=== PATIENT | female | born 1980 | race Caucasian/White ===

== ENCOUNTER 2016-07-23 16:35 | Emergency (ER) | payer OTHER ==
[~2016-07-23] VITALS: Ht 160 cm; Wt 89.0 kg
[~2016-07-23 16:35] MED LIST: CYCL-319 PO; IBUP800T25 PO; SAME; SUMA50TA11; TRAM50TA2 PO; denies meds/allergies
[2016-07-23 16:43] VITALS: Ht 160 cm; Wt 89.0 kg
[2016-07-23] MEDS ORDERED: DIPHTH/TET/ACEL PERTUSS (ADULT) 0.5 ML VIAL IM* ONE (17:00)
[2016-07-23] MEDS ORDERED: AMOX1TAB10 PO (17:03)
--- NOTE | 2016-07-23 17:08 | ERD ---
ER Documentation Chief Complaint Date/Time DATE: 07/23/16 TIME: 17:07 Chief Complaint right wrist dog bite today HPI A 35-year-old female with no past medical history who presents to the ED with a dog bite to her right wrist. She states that both of her dogs were fighting and she tried to stop 1 of the dogs from fighting and the dog bit her on the wrist. Denies bleeding. Denies fever or chills. Denies dizziness. Denies abdominal pain, nausea, vomiting or diarrhea. No other complaints. Patient is not up-to-date with her tetanus vaccine. ROS All systems reviewed and are negative except as per history of present illness. Medications Home Meds Active Scripts Amoxicillin/Potassium Clav (Amox-Clav 875-125 mg Tablet) 875-125 mg Tab, 1 TAB PO BID for 7 Days, #14 TAB Prov:CORY CISNEROS PA-C 07/23/16 Tramadol HCl (Tramadol HCl) 50 Mg Tablet, 50 MG PO Q6 Y for SEVERE PAIN LEVEL 7- 10, #10 TAB Prov:LAKE HENDERSON. [employer]UD[employer] PROFESSOR 09/25/15 Cyclobenzaprine Hcl* (Cyclobenzaprine Hcl*) 10 Mg Tablet, 10 MG PO TID, #15 TAB Prov:LAKE HENDERSON. [employer]DI[employer] STUDIES PROFESSOR 09/25/15 Ibuprofen* (Motrin*) 800 Mg Tab, 800 MG PO Q8 Y for PAIN AND OR ELEVATED TEMP, # 30 TAB Prov:LAKE HENDERSON. AMER[employer]DI[employer] STUDIES PROFESSOR 09/25/15 Reported Medications [denies meds/allergies] No Conflict Check 12/04/12 [Same] No Conflict Check 11/22/11 Sumatriptan Succinate* (Imitrex*) 50 Mg Tablet 07/28/11 Allergies Allergies: Coded Allergies: No Known Drug Allergy (Verified Allergy, Unknown, 09/25/15) PMhx/Soc History of Surgery: No Anesthesia Reaction: No Hx Neurological Disorder: No Hx Respiratory Disorders: No Hx Cardiac Disorders: No Hx Psychiatric Problems: No Hx Miscellaneous Medical Probl: No Hx Alcohol Use: No Hx Substance Use: No Hx Tobacco Use: No Smoking Status: Never smoker FmHx Family History: No coronary disease, No diabetes, No other Physical Exam Vitals Vital Signs Date Time Temp Pulse Resp B/P Pulse Ox O2 Delivery O2 Flow Rate FiO2 07/23/16 16:43 98.2 112 18 140/65 99 Physical Exam GENERAL: Well-developed, well-nourished female. Appears in no acute distress. HEAD: Normocephalic, atraumatic. EYES: Pupils are equally reactive bilaterally. EOMs grossly intact. No conjunctival erythema. ENT: Moist mucous membranes. No uvula deviation. No kissing tonsils. No exudates. NECK: Supple. No lymphadenopathy or thyromegaly. No meningismus. negative kernig. negative brudinski. LUNG: Clear to auscultation bilaterally. No rhonchi, wheezing, rales or coarse breath sounds. HEART: Regular rate and rhythm. No murmurs, rubs or gallops. BACK: No midline tenderness. Extremities: Equal pulses bilaterally. No peripheral clubbing, cyanosis or edema. No unilateral leg swelling. Bite to the right wrist. No step-offs or deformities. NEUROLOGIC: Alert and oriented. Moving all four extremities. 5/5 strength in all extremities. Normal speech. Steady gait. SKIN: Normal color. Warm and dry. No rashes or lesions. Capillary refill < 2 seconds Results 24 hrs Current Medications Medications (Trade) Dose Ordered Sig/Vianey Route PRN Reason Start Time Stop Time Status Last Admin Dose Admin Diphtheria/ Tetanus/Acell Pertussis (Adacel) 0.5 ml ONCE ONCE IM* 07/23/16 17:00 07/23/16 17:02 DC Procedures/MDM ER COURSE: I kept the patient and/or family informed of laboratory and diagnostic imaging results throughout the emergency room course. MEDICAL DECISION MAKING: This is a 35-year-old female who presents with dog bite 1 day. Vital signs were reviewed. Patient is afebrile. Patient is not hypoxic. Patient is not toxic or ill-appearing. Patient was given a tetanus vaccine here in the ED and tolerated well with no adverse reaction. Low suspicion for necrotizing fasciitis, SJS, toxic epidermal necrolysis, Kawasaki, erythema multiforme, gangrene, scarlet fever, meningococcemia, sepsis, anaphylaxis, sepsis, deep space infection, or foreign body. DISCHARGE: At this time, patient is stable for discharge and outpatient management with no new complaints during the ER course. Patient was sent home with Augmentin. Patient will be discharged home with instructions to recheck for new or worsening symptoms such as fever, nausea, weakness, LOC and to follow up with primary care in the next 1-2 days. Patient was advised to return to the ER for any new or worsening symptoms. Plan was discussed and patient and/or family understands and agrees. Home instructions were given. Departure Diagnosis: Primary Impression: Dog bite Encounter type: initial encounter Qualified Code: W54.0XXA - Dog bite, initial encounter Condition: Stable Patient Instructions: Dog Bite Additional Instructions: Call your primary care doctor TOMORROW for an appointment during the next 1-2 days.See the doctor sooner or return here if your condition worsens before your appointment time. CORY CISNEROS PA-C Jul 23, 2016 17:08
== END 2016-07-23 17:17 | disposition home or self-care (01) ==
LOC: FTE 16:35
DX: S61.551A Open bite of right wrist, initial encounter (principal); W54.0XXA Bitten by dog, initial encounter; Y92.9 Unspecified place or not applicable; Z23 Encounter for immunization
CPT/HCPCS: 90471; 90715; Z7502

== ENCOUNTER 2018-01-25 04:49 | Inpatient (IN) | END 2018-01-26 15:55 | disposition home or self-care (01) | DRG 445 ==

== ENCOUNTER 2018-02-09 09:02 | Emergency (ER) | payer OTHER ==
[~2018-02-09] VITALS: Ht 162.6 cm; Wt 83.9 kg
[~2018-02-09 09:02] MED LIST changes: -CYCL-319 PO; +CYCL10TA7 PO; +HYDR-4011 PO; -IBUP800T25 PO; +IBUP800T48 PO; +LEVO750T8 PO; +ONDA4TAB13 PO; -SAME; -SUMA50TA11; +SUMA50TA2; -denies meds/allergies
[2018-02-09 09:06] VITALS: Ht 162.6 cm; Wt 83.9 kg
[2018-02-09] MEDS ORDERED: ONDANSETRON 4 MG INJ IV STA (09:22)
[2018-02-09] MEDS ORDERED: KETOROLAC 30 MG INJ IV STA (09:22)
[2018-02-09] MEDS ORDERED: NITR-58 PO (10:42)
[2018-02-09] MEDS ORDERED: IBUP-1542 PO (10:42)
[2018-02-09] MEDS ORDERED: ONDA4TAB14 PO (10:42)
[2018-02-09 11:05] VITALS: BP 122/68; PULSE 82; RESP 19
--- NOTE | 2018-02-09 11:07 | ERD ---
ER Documentation Chief Complaint Chief Complaint abdominal pain hx gallstones HPI Patient is a 37-year-old female with history of gallstones, chronic cholecystitis, presents the ER for concerns of right upper quadrant pain times the last 3 days. Patient states she has had nausea. Patient denies any vomiting. Patient denies fevers or chills. Patient was seen here approximately 2 weeks ago and admitted for concerns of chronic cholecystitis. Patient was treated with antibiotics and advised that she will need to follow-up with the general surgeon on outpatient basis for outpatient cholecystectomy. Patient states that she has an appointment with general surgeon on 02-23-18 however she does not recall the name of the surgeon. Patient denies any chest pain, shortness of breath, headache, LOC. ROS All systems reviewed and are negative except as per history of present illness. Medications Home Meds Active Scripts Nitrofurantoin Monohyd Macrocr* (Macrobid*) 100 Mg Capsr, 100 MG PO BID for 5 Days, CAP Prov:CALDERON VALDEZ PA-C 02/09/18 Ondansetron (Ondansetron Odt) 4 Mg Tab.rapdis, 4 MG PO Q6H PRN for NAUSEA AND/OR VOMITING, #10 TAB Prov:CALDERON VALDEZ PA-C 02/09/18 Ibuprofen* (Motrin*) 600 Mg Tab, 600 MG PO Q6, #30 TAB Prov:CALDERON VALDEZ PA-C 02/09/18 Levofloxacin* (Levofloxacin*) 750 Mg Tablet, 750 MG PO DAILY, #5 TAB Prov:HORTENSIA MARQUEZ S. 01/26/18 Hydrocodone/Acetaminophen ([place] 5-325 Tablet) 1 Each Tablet, 1 EACH PO Q6, #15 TAB Prov:HORTENSIA MARQUEZ S. 01/26/18 Ondansetron Hcl* (Zofran*) 4 Mg Tab, 4 MG PO Q6H PRN for NAUSEA AND OR VOMITING, #14 TAB Prov:HORTENSIA MARQUEZ S. 01/26/18 Tramadol HCl (Tramadol HCl) 50 Mg Tablet, 50 MG PO Q6 PRN for SEVERE PAIN LEVEL 7-10, #10 TAB Prov:LAKE HENDERSON NP 09/25/15 Cyclobenzaprine Hcl* (Cyclobenzaprine Hcl*) 10 Mg Tablet, 10 MG PO TID, #15 TAB Prov:LAKE HENDERSON. CONTINUITY EDITOR 09/25/15 Ibuprofen* (Motrin*) 800 Mg Tab, 800 MG PO Q8 PRN for PAIN AND OR ELEVATED TEMP, #30 TAB Prov:LAKE HENDERSON. CONTINUITY EDITOR 09/25/15 Reported Medications Sumatriptan Succinate* (Imitrex*) 50 Mg Tablet 07/28/11 Allergies Allergies: Coded Allergies: No Known Drug Allergy (Verified Allergy, Unknown, 09/25/15) PMhx/Soc History of Surgery: Yes (,BACK SURGERY 02/24) Anesthesia Reaction: No Hx Neurological Disorder: No Hx Respiratory Disorders: No Hx Cardiac Disorders: No Hx Psychiatric Problems: No Hx Miscellaneous Medical Probl: No Hx Alcohol Use: No Hx Substance Use: No Hx Tobacco Use: No Smoking Status: Never smoker FmHx Family History: No diabetes Physical Exam Vitals Vital Signs Date Temp Pulse Resp B/P (MAP) Pulse Ox O2 O2 Flow FiO2 Time Delivery Rate 02/09/18 97.2 93 18 130/61 98 09:06 (84) Physical Exam GENERAL: Well-developed, well-nourished female. Appears in no acute distress. HEAD: Normocephalic, atraumatic. EYES: Pupils are equally reactive bilaterally. EOMs grossly intact. No conjunctival erythema. ENT: Moist mucous membranes. No uvula deviation. No kissing tonsils. NECK: Supple. No meningismus. Normal range of motion of the neck. LUNG: Clear to auscultation bilaterally. No rhonchi, wheezing, rales or coarse breath sounds. HEART: Regular rate and rhythm. No murmurs, rubs or gallops. ABDOMEN: Soft, nondistended. Minimally tender to palpation in the right upper quadrant. No pulsatile masses. Positive bowel sounds in all four quadrants. No rebound tenderness, no guarding. (-) McBurney's point tenderness. No CVA tenderness. EXTREMITIES: Equal pulses bilaterally. No peripheral clubbing, cyanosis or edema . No unilateral leg swelling. NEUROLOGIC: Alert and oriented. Moving all four extremities without any difficulty. Normal speech. Steady gait. SKIN: Normal color. Warm and dry. No rashes or lesions. Result Diagram: 02/09/1832 02/09/18931 Results 24 hrs Laboratory Tests Test 02/09/18 09:32 1/3/19 09:37 White Blood Count 5.8 10^3/ul Red Blood Count 4.25 10^6/ul Hemoglobin 13.5 g/dl Hematocrit 40.1 % Mean Corpuscular Volume 94.4 fl Mean Corpuscular Hemoglobin 31.8 pg Mean Corpuscular Hemoglobin Concent 33.7 g/dl Red Cell Distribution Width 13.2 % Platelet Count 324 10^3/UL Mean Platelet Volume 10.3 fl Immature Granulocytes % 0.000 % Neutrophils % 60.1 % Lymphocytes % 28.5 % Monocytes % 8.0 % Eosinophils % 2.4 % Basophils % 1.0 % Nucleated Red Blood Cells % 0.0 /100WBC Immature Granulocytes # 0.000 10^3/ul Neutrophils # 3.5 10^3/ul Lymphocytes # 1.6 10^3/ul Monocytes # 0.5 10^3/ul Eosinophils # 0.1 10^3/ul Basophils # 0.1 10^3/ul Nucleated Red Blood Cells # 0.0 10^3/ul Urine Color YELLOW Urine Clarity SLIGHTLY CLOUDY Urine pH 5.0 Urine Specific [place] 1.021 Urine Ketones NEGATIVE mg/dL Urine Nitrite NEGATIVE mg/dL Urine Bilirubin NEGATIVE mg/dL Urine Urobilinogen NEGATIVE mg/dL Urine Leukocyte Esterase 3+ Reymundo/ul Urine Microscopic RBC 2 /HPF Urine Microscopic WBC 37 /HPF Urine Squamous Epithelial Cells FEW /HPF Urine Bacteria FEW /HPF Urine Mucus FEW /HPF Urine Hemoglobin 1+ mg/dL Urine Glucose NEGATIVE mg/dL Urine Total Protein NEGATIVE mg/dl Sodium Level 142 mmol/L Potassium Level 4.1 mmol/L Chloride Level 105 mmol/L Carbon Dioxide Level 31 mmol/L Anion Gap 6 Blood Urea Nitrogen 10 mg/dl Creatinine 0.68 mg/dl Est Glomerular Filtrat Rate mL/min > 60 mL/min Glucose Level 90 mg/dl Calcium Level 9.3 mg/dl Total Bilirubin 0.1 mg/dl Direct Bilirubin 0.00 mg/dl Indirect Bilirubin 0.1 mg/dl Aspartate Amino Transf (AST/SGOT) 19 IU/L Alanine Aminotransferase (ALT/SGPT) 20 IU/L Alkaline Phosphatase 56 IU/L Total Protein 7.4 g/dl Albumin 4.0 g/dl Globulin 3.40 g/dl Albumin/Globulin Ratio 1.17 Lipase 105 U/L POC Beta HCG, Qualitative NEGATIVE Current Medications Medications Dose Sig/Vianey Start Time Status Last (Trade) Ordered Route PRN Stop Time Admin Dose Reason Admin Ondansetron 4 mg ONCE STAT 02/09/18 DC 02/09/18 HCl (Zofran IV 09:22 02/09/18 09:52 Inj) 09:25 Ketorolac 30 mg ONCE STAT 02/09/18 DC 02/09/18 Tromethamine IV 09:22 02/09/18 09:51 (Toradol) 09:25 Procedures/MDM ED COURSE: The patient was stable throughout ED course. I kept the patient and/or family informed of laboratory and diagnostic imaging results throughout the ED course. DIAGNOSTIC IMAGING: Read by radiologist. Patient: TARIQ RAM : 1980 Age: 37 Sex: F MR #: [id number] DOS: 02/09/18921 Ordering MD: CALDERON VALDEZ PA-C Location: [facility] Room/Bed: PROCEDURE: US Abdomen Right Upper Quadrant. CLINICAL INDICATION: Abdominal pain TECHNIQUE: Multiple real-time longitudinal and transverse images were acquired of the patient's right upper quadrant abdomen utilizing a curved array transducer. COMPARISON: 01/25/2018 FINDINGS: Liver: The liver remains normal in size with the sagittal diameter of the right lobe measuring 15.0 cm. The liver is normal in echotexture and no focal lesion is identified. There is normal directional flow of the main portal vein. Gallbladder: Multiple gallstones are again seen within the gallbladder. The gallbladder wall is is thickened reaching a maximum of 5.6 mm. No pericholecystic fluid is evident. Bile ducts: The common bile duct is borderline prominent measuring 5.7 mm in cross diameter. Pancreas: The visualized head and body of the pancreas appear unremarkable. Right kidney: Normal in echotexture and in size. The right kidney measures 9.6 cm in length. No mass, pathological calcification, or hydronephrosis is evident. Peritoneum: There is no free intraperitoneal fluid IMPRESSION: 1. When compared to 01/25/2018, there is again extensive cholelithiasis. The gallbladder wall remains thickened to a maximum of 5.7 mm. Clinical correlation is indicated to exclude the possibility of cholecystitis. 2. The common bile duct is now borderline prominent measuring 5.7 mm in cross diameter. 3. The visualized head and body of the pancreas appear unremarkable as does the right kidney. 4. No free intraperitoneal fluid is evident. Physician Ellie Date Time Electronically viewed and signed by Physician Ellie on 02/09/2018 10:01 RH/ CC: CALDERON VALDEZ PA-C [id number] PROCEDURES: None. MEDICATIONS GIVEN: Toradol, Zofran Patient tolerated medication well with no adverse reactions. Patient reported improvement in pain. MEDICAL DECISION MAKING: This is a 37-year-old female with a history of chronic cholecystitis and biliary colic who presents the ER for concerns of right upper quadrant pain and nausea for the last 3 days. Vital signs were reviewed. Patient was afebrile. Patient was nontoxic. IV line was established. Blood work was obtained. CBC showed no evidence of systemic infection or severe anemia. CMP showed no evidence of electrolyte abnormalities, severe acidosis, alkalosis, renal failure, or liver disease. Lipase showed no evidence of acute pancreatitis. Urine test was negative. UA did show 3+ leukocyte esterase, 1+ blood. Patient was given Toradol for her pain and Zofran for nausea. Upon reexamination, patient's pain was improved. Patient did not require an additional pain medications throughout ED course. Patient was noted to be on her cell phone with no signs of distress. Gallbladder ultrasound did show extensive cholelithiasis. The gallbladder wall was thickened to a maximum of 5.7. Common bile duct was now borderline noted to be 5.7 mm in cross diameter. These findings were discussed with my supervising physician Dr. Watson. He reviewed the patient's blood work and previous imaging studies. Given that patient's pain was well controlled, was afebrile, and had no evidence of elevated LFTs, we have low suspicion for acute cholecystitis at this time. Patient does have an appointment with general surgeon in 2 weeks. Patient does not recall the name of the surgeon. At this time for the patient presentation most consistent with UTI and cholelithiasis. Low suspicion for acute coronary syndrome, AAA, mesenteric ischemia, lower lobe pneumonia, DKA, bowel perforation, cholecystitis, choledocholithiasis, ascending cholangitis, hepatic abscess, pancreatitis, PUD, gastritis, GERD, splenic rupture, diverticulitis, pyelonephritis, nephrolithiasis, appendicitis, constipation, , ectopic , PID, ovarian torsion or tubo-ovarian abscess. Patient was nontoxic, normal appearing prior to discharge. PRESCRIPTIONS: Ibuprofen, Zofran, Macrobid DISCHARGE: At this time, patient is stable for discharge and outpatient management. I have instructed the patient to follow-up with his/her primary care physician in 1-2 days. I have instructed the patient to promptly return to the ER at any time for any new or worsening symptoms including increased pain, nausea, vomiting, diarrhea, fever, weakness or LOC. The patient and/or family expressed understanding of and agreement with this plan. All questions were answered. Home care instructions were provided. Disclaimer: Inadvertent spelling and grammatical errors are likely due to EHR/dictation software use and do not reflect on the overall quality of patient care. Also, please note that the electronic time recorded on this note does not necessarily reflect the actual time of the patient encounter. Departure Diagnosis: Primary Impression: Cholelithiasis Cholelithiasis location: other site Biliary obstruction: without biliary obstruction Qualified Codes: K80.80 - Other cholelithiasis without obstruction Additional Impression: UTI (urinary tract infection) Urinary tract infection type: site unspecified Hematuria presence: with hematuria Qualified Codes: N39.0 - Urinary tract infection, site not specified; R31.9 - Hematuria, unspecified Condition: Stable Patient Instructions: Understanding Urinary Tract Infections (UTIs), Gallstones Referrals: [facility] YOU HAVE RECEIVED A MEDICAL SCREENING EXAM AND THE RESULTS INDICATE THAT YOU DO NOT HAVE A CONDITION THAT REQUIRES URGENT TREATMENT IN THE EMERGENCY DEPARTMENT. FURTHER EVALUATION AND TREATMENT OF YOUR CONDITION CAN WAIT UNTIL YOU ARE SEEN IN YOUR DOCTORS OFFICE WITHIN THE NEXT 1-2 DAYS. IT IS YOUR RESPONSIBILITY TO MAKE AN APPOINTMENT FOR FOLOW-UP CARE. IF YOU HAVE A PRIMARY DOCTOR --you should call your primary doctor and schedule an appointment IF YOU DO NOT HAVE A PRIMARY DOCTOR YOU CAN CALL OUR PHYSICIAN REFERRAL HOTLINE AT IF YOU CAN NOT AFFORD TO SEE A PHYSICIAN YOU CAN CHOSE FROM THE FOLLOWING [facility] [address] [facility] [place] [facility] [address] [facility] [address] [facility] [address] [facility] [address] [facility]. [facility] [address] [facility]. [facility] YOU HAVE RECEIVED A MEDICAL SCREENING EXAM AND THE RESULTS INDICATE THAT YOU DO NOT HAVE A CONDITION THAT REQUIRES URGENT TREATMENT IN THE EMERGENCY DEPARTMENT. FURTHER EVALUATION AND TREATMENT OF YOUR CONDITION CAN WAIT UNTIL YOU ARE SEEN IN YOUR DOCTORS OFFICE WITHIN THE NEXT 1-2 DAYS. IT IS YOUR RESPONSIBILITY TO MAKE AN APPOINTMENT FOR FOLOW-UP CARE. IF YOU HAVE A PRIMARY DOCTOR --you should call your primary doctor and schedule and appointment IF YOU DO NOT HAVE A PRIMARY DOCTOR YOU CAN CALL OUR PHYSICIAN REFERRAL HOTLINE AT . IF YOU CAN NOT AFFORD TO SEE A PHYSICIAN YOU CAN CHOSE FROM THE FOLLOWING [facility] INSTITUTIONS: [facility] [address] [place] [address] [facility] [address] [place] [address] [facility] [address] [place] [address] Additional Instructions: Take antibiotics for UTI as prescribed. Follow-up with general surgeon as scheduled for February 23 for further management of your gallstones. Call your primary care doctor TOMORROW for an appointment during the next 1-2 days.See the doctor sooner or return here if your condition worsens before your appointment time. CALDERON VALDEZ PA-C Feb 09, 2018 11:07
== END 2018-02-09 11:06 | disposition home or self-care (01) ==
LOC: FTE 09:02
DX: K80.80 Other cholelithiasis without obstruction (principal); N39.0 Urinary tract infection, site not specified
CPT/HCPCS: 36415; 76705; 80053; 81001; 81025; 83690; 85025; 96374; 96375; J1885; J2405; Z7502

== ENCOUNTER 2018-03-08 12:16 | Day surgery (SDC) | payer OTHER ==
[2018-03-07 16:44] VITALS: BMI 69.2
[2018-03-08] VITALS (21 sets, daily range): BP systolic 117–136; BP diastolic 58–80; PULSE 84–120; RESP 15–24; Ht 162.6 cm; Wt 85.4 kg
[~2018-03-08] VITALS: Ht 162.6 cm; Wt 85.4 kg
[~2018-03-08 12:16] MED LIST changes: +CEFAZOLIN 2 GM/50 ML (PMX) 50 ML IVPB ONE; +IBUP-1542 PO; +LIDOCAINE 2% (SDV) 5 ML INJ ONE; +NITR-58 PO; +ONDA4TAB14 PO; +PROPOFOL 200 MG INJ ONE; +SOD CHLORIDE 0.9% 1,000 ML IV SCH
[2018-03-08] MEDS ORDERED: ROPIVACAINE 0.5 % 30 ML VIAL ONE (14:59)
[2018-03-08] MEDS ORDERED: BUPIVACAINE 0.5%/EPI (SDV) 30 ML INJ ONE (15:24)
--- NOTE | 2018-03-08 15:37 | PREAC ---
Date/Time of Note Date/Time of Note DATE: 03/08/18 TIME: 15:36 Anesthesia Eval and Record Evaluation Time Pre-Procedure Interview DATE: 03/08/18 TIME: 15:36 Age 37 Sex female NPO: 8 hrs Preoperative diagnosis gallstones Planned procedure cholechystectomy Past Medical History Past Medical History: None Surgery & Anesthesia Issues No known issue Meds Anticoagulation: No Beta Deborah within 24 hr: No Reason Beta Deborah not given: Pt. not on B-Deborah Discontinued Reported Medications Sumatriptan Succinate* (Imitrex*) 50 Mg Tablet 07/28/11 Discontinued Scripts Nitrofurantoin Monohyd Macrocr* (Macrobid*) 100 Mg Capsr, 100 MG PO BID for 5 Days, CAP Prov:CALDERON VALDEZ PA-C 02/09/18 Ondansetron (Ondansetron Odt) 4 Mg Tab.rapdis, 4 MG PO Q6H PRN for NAUSEA AND/OR VOMITING, #10 TAB Prov:CALDERON VALDEZ PA-C 02/09/18 Ibuprofen* (Motrin*) 600 Mg Tab, 600 MG PO Q6, #30 TAB Prov:CALDERON VALDEZ PA-C 02/09/18 Levofloxacin* (Levofloxacin*) 750 Mg Tablet, 750 MG PO DAILY, #5 TAB Prov:HORTENSIA MARQUEZ S. 01/26/18 Hydrocodone/Acetaminophen ([place] 5-325 Tablet) 1 Each Tablet, 1 EACH PO Q6, #15 TAB Prov:HORTENSIA MARQUEZ S. 01/26/18 Ondansetron Hcl* (Zofran*) 4 Mg Tab, 4 MG PO Q6H PRN for NAUSEA AND OR VOMITING, #14 TAB Prov:HORTENSIA MARQUEZ S. 01/26/18 Tramadol HCl (Tramadol HCl) 50 Mg Tablet, 50 MG PO Q6 PRN for SEVERE PAIN LEVEL 7-10, #10 TAB Prov:LAKE HENDERSON NP 09/25/15 Cyclobenzaprine Hcl* (Cyclobenzaprine Hcl*) 10 Mg Tablet, 10 MG PO TID, #15 TAB Prov:LAKE HENDERSON NP 09/25/15 Ibuprofen* (Motrin*) 800 Mg Tab, 800 MG PO Q8 PRN for PAIN AND OR ELEVATED TEMP, #30 TAB Prov:LAKE HENDERSON KAYODE 09/25/15 Current Medications Sodium Chloride 1,000 ml @ 75 mls/hr [id number] IV ; Start 03/08/18 at 10:00; Stop 03/08/18 at 23:19 Meds reviewed: Yes Allergies Coded Allergies: No Known Drug Allergy (Verified Allergy, Unknown, 03/08/18) Allergies Reviewed: Yes Labs/Studies Labs Reviewed: Reviewed by anesthesiologist test: Negative Pre-procedure Exam Last vitals Vital Signs Date Temp Pulse Resp B/P (MAP) Pulse Ox O2 O2 Flow FiO2 Time Delivery Rate 03/08/18 98.8 100 16 119/58 97 Room Air 13:26 (78) Airway: Adequate mouth opening, Adequate thyromental dist Mallampati: Mallampati III Teeth: Normal Lung: Normal Heart: Normal ASA Physical Status ASA physical status: 1 Emergency: None Pre-operative Attestations Prior to commencing anesthesia and surgery, the patient was re-evaluated, there was verification of: *The patient's identity *The results of appropriate recent lab work and preoperative vital signs *The above evaluation not changing prior to induction *Anesthetic plan, risk benefits, alternative and complications discussed with patient/family; questions answered; patient/family understands, accepts and wishes to proceed. VIVEK LUO DO Mar 08, 2018 15:37
[2018-03-08] MEDS ORDERED: CEFAZOLIN 1 GM INJ ONE ×2 (15:54)
[2018-03-08] MEDS ORDERED: DEXAMETHASONE 4 MG/ML 5 ML INJ ONE (15:56)
[2018-03-08] MEDS ORDERED: ONDANSETRON 4 MG INJ ONE (15:56)
--- NOTE | 2018-03-08 17:07 | OPR ---
Date/Time of Note Date/Time of Note DATE: 03/08/18 TIME: 17:03 Operative Report Procedure Date: Mar 08, 2018 Preoperative Diagnosis Cholelithiasis/chronic cholecystitis Postoperative Diagnosis Cholelithiasis/chronic cholecystitis Operation/Procedure Performed Laparoscopic cholecystectomy Surgeon see signature line Creative Director none Anesthesia Type: general Anesthesiologist: VIVEK LUO DO Estimated Blood Loss: minimal Transfusion none Specimen Gallbladder Grafts/Implants none Complications none Pt Condition Post Procedure: stable Disposition: PACU Indications The patient is a obese 37-year-old female who presented to the office with right upper quadrant abdominal pain. Patient had multiple emergency room visits and was sent home. The patient had clinical signs and symptoms of biliary colic and chronic cholecystitis which was confirmed via an ultrasound which showed the presence of gallstones and gallbladder wall thickening. The patient was scheduled for laparoscopic cholecystectomy; possible open as definitive treatment to prevent further sequelae of gallstone disease which include but are not limited to: Gangrenous cholecystitis, choledocholithiasis, gallstone pancreatitis, ascending cholangitis, etc. All risks and benefits of the procedure including but not limited to: Wound infection, excessive bleeding, common bile duct injury, postoperative biliary leak, retained common bile duct stone, injury to intra-abdominal organs, conversion to open procedure, possible need for subsequent surgeries, etc. were all explained to the patient in full detail. She fully understood and wished to proceed with the procedure. Informed consent was therefore obtained. Procedure Description The patient was brought to the operating room and placed supine on the operating table. Bilateral sequential compression devices were placed on both lower extremities. A dose of broad-spectrum perioperative intravenous antibiotics was given. After the induction of smooth general endotracheal anesthesia the patient's abdomen was prepped and draped in the standard surgical fashion. After performance of the surgical timeout a 5 mm incision was made in the inferior umbilicus and a Veress needle was used to access the intra-abdominal cavity atraumatically. Pneumoperitoneum was then obtained and the Veress needle was exchanged for a 5 mm trocar through which a 5 mm laparoscope was placed. Three further working ports were then placed a 12 mm port in the sub-xiphoid region and two 5 mm ports in the right upper quadrant. All port sites were anesthetized with 0.5% Marcaine with epinephrine prior to incision. Using atraumatic graspers the gallbladder was grasped and retracted superiorly and laterally exposing the area of Spann's pouch. Dissection was begun in this area using a combination of blunt dissection and hook electrocautery. There was a lot of thick fat enveloping the entire gallbladder in the area of the cystic duct structures. After much tedious dissection the cystic duct was identified as it entered straight into the neck of the gallbladder. It was dissected free of surrounding tissues and clipped proximally and distally x 3 and transected using EndoShears. Dissection was then continued posteriorly. The cystic artery was identified and dissected free of surrounding tissues. It too was clipped proximally and distally x 3 and transected using EndoShears. The gallbladder was then dissected off the liver bed using electrocautery. There was dense fibrosis of the posterior aspect of the gallbladder to the liver bed. Once completely free the gallbladder was placed in an Endo Catch bag and withdrawn through the subxiphoid port site and passed off the field as specimen. Hemostasis was then inspected for and noted to be total. The abdomen was then irrigated with several liters of warm normal saline and the irrigant returned crystal clear. The fascia of the subxiphoid port site was then reapproximated using a armida-close device. Pneumoperitoneum was then released and all remaining trochars were withdrawn under direct vision. The subcutaneous tissues were irrigated with more warm normal saline. The skin was then reapproximated using 4-0 Monocryl sutures in subcuticular fashion. The incisions were cleaned and Dermabond was applied to the incisions and the patient was awoken from anesthesia and transported to the recovery room in stable condition. All counts were correct at the end of the case x 2. JOHANNA SMITH MD Mar 08, 2018 17:07
[2018-03-08] MEDS ORDERED: GLYCOPYRROLATE 0.4 MG INJ ONE (17:10)
[2018-03-08] MEDS ORDERED: NEOSTIGMINE 3 MG/3 ML SYRINGE ONE (17:10)
--- NOTE | 2018-03-08 17:29 | PAC ---
Date/Time of Note Date/Time of Note DATE: 03/08/18 TIME: 17:28 Post-Anesthesia Notes Post-Anesthesia Note Last documented vital signs Vital Signs Date Temp Pulse Resp B/P (MAP) Pulse Ox O2 O2 Flow FiO2 Time Delivery Rate 03/08/18 98 101 21 131/58 97 Room Air 1729 Activity: WNL Respiratory function: WNL Cardiovascular function: WNL Mental status: Baseline Pain reasonably controlled: Yes Hydration appropriate: Yes Nausea/Vomiting absent: Yes VIVEK LUO DO Mar 08, 2018 17:29
[2018-03-08] MEDS ORDERED: morphine 4 MG/ML VIAL IV PRN (17:30)
[2018-03-08] MEDS ORDERED: ONDANSETRON 4 MG INJ IV PRN ×2 (17:30)
[2018-03-08] MEDS ORDERED: HYDROmorphONE 1 MG/5 ML IV SYRINGE IV PRN (17:30)
[2018-03-08] MEDS ORDERED: HYDROCODONE/APAP (5/325) TAB PO PRN ×2 (17:30)
[2018-03-08] MEDS: HYDROmorphONE 1 MG/5 ML IV SYRINGE IV PRN ×4 (17:59→18:34)
[2018-03-08] MEDS ORDERED: morphine 2 MG INJ IV PRN (18:30)
== END 2018-03-08 19:26 | disposition home or self-care (01) ==
LOC: SDS 12:16
PROVIDERS: ATTEND Surgery
DX: K80.10 Calculus of gallbladder with chronic cholecystitis without obstruction (principal)
CPT/HCPCS: 47562; 88304; J0690; J1100; J1170; J2270; J2405; J2710; J2795; J3010; Z7512; Z7610

== ENCOUNTER 2018-04-12 10:37 | Emergency (ER) | payer OTHER ==
[~2018-04-12] VITALS: Wt 87.4 kg
[2018-04-12] MEDS ORDERED: KETOROLAC 30 MG INJ IM STA (12:29)
[2018-04-12] MEDS ORDERED: IBUP-1542 PO (14:44)
[2018-04-12] MEDS ORDERED: ACET-141 PO (14:44)
--- NOTE | 2018-04-12 14:46 | ERD ---
ER Documentation Chief Complaint Chief Complaint RIGHT SIDE/ABD PAIN X2 DAYS, NO N/V/D ROS All systems reviewed and are negative except as per history of present illness. Medications Home Meds Active Scripts Acetaminophen* (Acetaminophen*) 500 MG Extra Strength Tablet, 500 MG PO Q4H PRN for PAIN AND OR ELEVATED TEMP, #30 TAB Prov:JOHANNA BAL DO 04/12/18 Ibuprofen* (Motrin*) 600 Mg Tab, 600 MG PO Q6H PRN for PAIN AND OR ELEVATED TEMP, #30 TAB Prov:JOHANNA BAL DO 04/12/18 Allergies Allergies: Coded Allergies: No Known Drug Allergy (Verified Allergy, Unknown, 03/08/18) PMhx/Soc History of Surgery: Yes (LUMBAR, CSECTION X1. ) Anesthesia Reaction: No Hx Neurological Disorder: No Hx Respiratory Disorders: No Hx Cardiac Disorders: No Hx Psychiatric Problems: No Hx Miscellaneous Medical Probl: No Hx Alcohol Use: No Hx Substance Use: No Hx Tobacco Use: No Physical Exam Vitals Vital Signs Date Temp Pulse Resp B/P (MAP) Pulse Ox O2 O2 Flow FiO2 Time Delivery Rate 04/12/18 96.9 86 17 115/74 99 10:40 (88) Physical Exam Const: No acute distress Head: Atraumatic Eyes: Normal Conjunctiva ENT: Normal External Ears, Nose and Mouth. Neck: Full range of motion. No meningismus. Resp: Clear to auscultation bilaterally Cardio: Regular rate and rhythm, no murmurs Abd: Soft, non tender, non distended. Normal bowel sounds Skin: No petechiae or rashes Back: No midline or flank tenderness Ext: No cyanosis, or edema Neur: Awake and alert Psych: Normal Mood and Affect Result Diagram: 04/12/18 1241 04/12/18 1241 Results 24 hrs Laboratory Tests Test 04/12/18 12:41 04/12/18 12:55 04/12/18 13:01 White Blood Count 7.0 10^3/ul Red Blood Count 4.40 10^6/ul Hemoglobin 13.7 g/dl Hematocrit 42.2 % Mean Corpuscular Volume 95.9 fl Mean Corpuscular Hemoglobin 31.1 pg Mean Corpuscular 32.5 g/dl Hemoglobin Concent Red Cell Distribution Width 13.8 % Platelet Count 350 10^3/UL Mean Platelet Volume 9.9 fl Immature Granulocytes % 0.300 % Neutrophils % 62.0 % Lymphocytes % 27.6 % Monocytes % 7.0 % Eosinophils % 2.1 % Basophils % 1.0 % Nucleated Red Blood Cells % 0.0 /100WBC Immature Granulocytes # 0.020 10^3/ul Neutrophils # 4.3 10^3/ul Lymphocytes # 1.9 10^3/ul Monocytes # 0.5 10^3/ul Eosinophils # 0.2 10^3/ul Basophils # 0.1 10^3/ul Nucleated Red Blood Cells # 0.0 10^3/ul Sodium Level 141 mmol/L Potassium Level 4.0 mmol/L Chloride Level 101 mmol/L Carbon Dioxide Level 30 mmol/L Anion Gap 10 Blood Urea Nitrogen 10 mg/dl Creatinine 0.65 mg/dl Est Glomerular Filtrat > 60 mL/min Rate mL/min Glucose Level 105 mg/dl Calcium Level 9.3 mg/dl Total Bilirubin 0.1 mg/dl Direct Bilirubin 0.00 mg/dl Indirect Bilirubin 0.1 mg/dl Aspartate Amino Transf (AST/SGOT) 19 IU/L Alanine 14 IU/L Aminotransferase (ALT/SGPT) Alkaline Phosphatase 69 IU/L Total Protein 7.8 g/dl Albumin 4.4 g/dl Globulin 3.40 g/dl Albumin/Globulin Ratio 1.29 Lipase 76 U/L Urine Color YELLOW Urine Clarity CLEAR Urine pH 7.0 Urine Specific Plover 1.009 Urine Ketones NEGATIVE mg/dL Urine Nitrite NEGATIVE mg/dL Urine Bilirubin NEGATIVE mg/dL Urine Urobilinogen NEGATIVE mg/dL Urine Leukocyte Esterase 2+ Reymundo/ul Urine Microscopic RBC 0 /HPF Urine Microscopic WBC 2 /HPF Urine Squamous Epithelial Cells FEW /HPF Urine Bacteria FEW /HPF Urine Hemoglobin NEGATIVE mg/dL Urine Glucose NEGATIVE mg/dL Urine Total Protein NEGATIVE mg/dl POC Beta HCG, Qualitative NEGATIVE Current Medications Medications Dose Sig/Vianey Start Time Status Last (Trade) Ordered Route PRN Stop Time Admin Dose Reason Admin Ketorolac 30 mg ONCE STAT 04/12/18 DC 04/12/18 Tromethamine IM 12:29 04/12/18 13:10 (Toradol) 12:32 Departure Diagnosis: Primary Impression: Flank pain Condition: Fair Patient Instructions: Flank Pain, Uncertain Cause Referrals: COMM[facility]ITY CLINICS YOU HAVE RECEIVED A MEDICAL SCREENING EXAM AND THE RESULTS INDICATE THAT YOU DO NOT HAVE A CONDITION THAT REQUIRES URGENT TREATMENT IN THE EMERGENCY DEPARTMENT. FURTHER EVALUATION AND TREATMENT OF YOUR CONDITION CAN WAIT UNTIL YOU ARE SEEN IN YOUR DOCTORS OFFICE WITHIN THE NEXT 1-2 DAYS. IT IS YOUR RESPONSIBILITY TO MAKE AN APPOINTMENT FOR FOLOW-UP CARE. IF YOU HAVE A PRIMARY DOCTOR --you should call your primary doctor and schedule an appointment IF YOU DO NOT HAVE A PRIMARY DOCTOR YOU CAN CALL OUR PHYSICIAN REFERRAL HOTLINE AT IF YOU CAN NOT AFFORD TO SEE A PHYSICIAN YOU CAN CHOSE FROM THE FOLLOWING [facility] [id number] [facility] [address] [facility] [address] [facility] [address] [facility]. [facility] [address] [facility] [facility]. [address] Additional Instructions: Call your primary care doctor TOMORROW for an appointment during the next 1-2 days.See the doctor sooner or return here if your condition worsens before your appointment time. JOHANNA BAL DO Apr 12, 2018 14:46
== END 2018-04-12 14:53 | disposition home or self-care (01) ==
LOC: FTE 10:37
DX: R10.9 Unspecified abdominal pain (principal)
CPT/HCPCS: 76775; 80053; 81001; 81025; 83690; 85025; 96372; J1885; Z7502